=== PATIENT | female | born 1985 | race Caucasian/White ===

== ENCOUNTER 2017-05-03 10:14 | Emergency (ER) | payer MEDICAID | END 2017-05-03 10:45 | disposition home or self-care (01) | LOC: E/R 10:14 | DX: R51 Headache (principal) | CPT/HCPCS: 99283; Z7502 ==

== ENCOUNTER 2018-08-07 16:36 | Outpatient (CLI) | payer MEDICAID ==
[2018-08-07] MEDS ORDERED: HYDROCODONE/APAP (5/325) TAB PO (18:00)
== END 2018-08-07 22:00 | disposition home or self-care (01) ==
LOC: OBT 16:36 → L-D 16:39 → OBT 22:00
DX: O47.1 False labor at or after 37 completed weeks of gestation (principal); Z3A.37 37 weeks gestation of pregnancy
CPT/HCPCS: 76818

== ENCOUNTER 2018-08-17 10:48 | Inpatient (IN) | payer MEDICAID ==
[2018-08-17] MEDS ORDERED: CARBOPROST 250 MCG INJ IM ×2 (12:00→20:30)
[2018-08-17] MEDS ORDERED: MISOPROSTOL 200 MCG TAB PR ×2 (12:00→20:30)
[2018-08-17] MEDS ORDERED: BUTORPHANOL 2 MG INJ IV (12:00)
[2018-08-17] MEDS ORDERED: METHYLERGONOVINE 0.2 MG INJ IM (12:00)
[2018-08-17] MEDS ORDERED: LIDOCAINE 1% (MPF) 30 ML INJ INJ (12:00)
[2018-08-17] MEDS ORDERED: OXYTOCIN 30 UNITS/LR 500 ML IV ×4 (12:00→20:30)
[2018-08-17] MEDS: LACTATED RINGER'S 1,000 ML IV ×2 (12:42→15:34)
[2018-08-17 13:09] LABS: ADD MAN DIFF? NO
[2018-08-17 13:14] LABS: WHITE BLOOD COUNT 7.8 10^3/ul (4.8-10.8)
[2018-08-17 13:14] LABS: BASOPHILS % 0.5 % (0.0-2.0); EOSINOPHILS # 0.1 10^3/ul (0.0-0.5); EOSINOPHILS % 0.6 % (0.0-7.0); HEMOGLOBIN 12.9 g/dl (12.0-16.0); LYMPHOCYTES # 1.1 10^3/ul (0.8-2.9); LYMPHOCYTES % 14.2 % (15.0-51.0); MEAN CORPUSCULAR HEMOGLOBIN 32.6 pg (29.0-33.0); MEAN CORPUSCULAR HGB CONC 33.9 g/dl (32.0-37.0); MEAN PLATELET VOLUME 10.5 fl (7.4-10.4); MONOCYTE # 0.5 10^3/ul (0.3-0.9); MONOCYTES % 6.3 % (0.0-11.0); NEUTROPHIL # 6.1 10^3/ul (1.6-7.5); NEUTROPHILS % 77.8 % (39.0-77.0); PLATELET COUNT 183 10^3/UL (140-415); RED BLOOD COUNT 3.96 10^6/ul (4.20-5.40); RED CELL DISTRIBUTION WIDTH 13.6 % (11.5-14.5)
[2018-08-17 13:33] LABS: INR 0.88; PARTIAL THROMBOPLASTIN TIME 28.8 Sec (23.0-35.0); PT RATIO 0.9
[2018-08-17 14:08] LABS: HEPATITIS B SURFACE ANTIGEN NEGATIVE (NEGATIVE)
[2018-08-17] MEDS: BUTORPHANOL 2 MG INJ IV ×3 (14:27→19:57)
[2018-08-17 15:07] LABS: RAPID PLASMA REAGIN NONREACTIVE (NR)
[2018-08-17] MEDS: IBUPROFEN 600 MG TAB PO ×2 (20:30→23:39)
[2018-08-17] MEDS ORDERED: NACL 0.9% 3 ML SYG IV (20:30)
[2018-08-17] MEDS ORDERED: HYDROCODONE/APAP (5/325) TAB PO (20:30)
[2018-08-17] MEDS ORDERED: ACETAMINOPHEN 325 MG TAB PO (20:30)
[2018-08-17] MEDS ORDERED: ONDANSETRON 4 MG INJ IV (20:30)
[2018-08-17] MEDS ORDERED: ZOLPIDEM 5 MG TAB PO (20:30)
[2018-08-17] MEDS ORDERED: DIPHENHYDRAMINE 25 MG CAP PO (20:30)
[2018-08-17] MEDS: PRENATAL VITAMIN PO (20:30)
[2018-08-17] MEDS: MINERAL OIL LIGHT 10 ML VIAL TOP (22:08)
[2018-08-17] MEDS: LANOLIN HPA 1 PKT TOP (23:40)
[2018-08-17] MEDS: WITCH HAZEL/GLYCERIN PAD PR (23:40)
[2018-08-17] MEDS: SENNA/DOCUSATE NA (8.6MG/50MG) TAB PO (23:40)
[2018-08-18] MEDS: OXYTOCIN 30 UNITS/LR 500 ML IV (00:39)
[2018-08-18] MEDS: IBUPROFEN 600 MG TAB PO ×3 (06:01→17:26)
[2018-08-18 08:20] LABS: HEMATOCRIT 34.4 % (37.0-47.0); HEMOGLOBIN 11.7 g/dl (12.0-16.0)
[2018-08-18] MEDS: PRENATAL VITAMIN PO (11:23)
[2018-08-18] MEDS: SENNA/DOCUSATE NA (8.6MG/50MG) TAB PO ×2 (11:23→21:15)
[2018-08-19] MEDS: IBUPROFEN 600 MG TAB PO ×3 (00:57→12:19)
[2018-08-19] MEDS: VARICELLA VACCINE LIVE/PF 1,350 UNIT/0.5 ML ML SC* (09:00)
[2018-08-19] MEDS: MEASLES,MUMPS,RUBELLA VACCINE INJ SC* (09:00)
[2018-08-19] MEDS: PRENATAL VITAMIN PO (09:14)
[2018-08-19] MEDS: SENNA/DOCUSATE NA (8.6MG/50MG) TAB PO (09:14)
[2018-08-19] MEDS: DIPHTH/TET/ACEL PERTUSS (ADULT) 0.5 ML VIAL IM* (09:16)
== END 2018-08-19 15:50 | disposition home or self-care (01) | DRG 806 ==
LOC: OBT 10:48 → L-D 10:49 → OBT 11:53 → L-D 11:53 → PP1 21:34
PROVIDERS: Obstetrics & Gynecology
PROC: 10E0XZZ Delivery of Products of Conception, External Approach (ICD-10-PCS; principal; 2018-08-17)
PROC: 0HQ9XZZ Repair Perineum Skin, External Approach (ICD-10-PCS; 2018-08-17)
DX: O70.0 First degree perineal laceration during delivery (principal); D62 Acute posthemorrhagic anemia; O99.02 Anemia complicating childbirth; Z3A.39 39 weeks gestation of pregnancy; Z37.0 Single live birth
CPT/HCPCS: 85014; 85018; 85025; 85610; 85730; 86592; 86850; 86900; 86901; 87340; 90715; 90716; 99464